=== PATIENT | male | born 1950 | race Caucasian/White ===

== ENCOUNTER 2020-02-24 16:20 | Emergency (ER) | payer MEDICARE, SELFPAY ==
[2020-02-24] VITALS (24 sets, daily range): BP systolic 187–231; BP diastolic 79–203; PULSE 56–77; RESP 13–21; TEMP 37.3; O2SAT 95–99
--- NOTE | ~2020-02-24 | CT_ITS ---
EXAMINATION: CTA BRAIN/CAROTID DATE: 02/24/2020 17:42 INDICATION: Stroke with dizziness, blurry vision and slurred speech. Headache. TECHNIQUE: Computed tomographic angiography (CTA) of the head and neck was performed with 100 mL Omni paque-350 intravenous contrast. Multiplanar reconstructions and maximum intensity projection 3D-recon structions of the carotid arteries and of the intracranial arteries were created by the technologist on a separate workstation. Precontrast CT of the head was also obtained. Automated exposure control and iterative reconstruction technique were employed.The dose-length product was 1779.77 mGy-cm. COMPARISON: Head CT dated 12/28/2014 FINDINGS: Carotid arteries: The bilateral internal carotid arteries are tortuous. There is 0% stenosis of the left carotid bulb r elative to normal distal artery lumen diameter (NASCET criteria). No definitive stenosis of the left carotid bulb relative to normal distal artery lumen diameter however assessment is significantly limi nicole by motion artifact at the level of the tortuosity. The left vertebral artery is dominant. The rig ht vertebral artery appears diminutive cephalad to the level of C6 and is unopacified more proximally suggesting proximal thrombosis with either distal reconstitution by collaterals or retrograde supply via the left vertebral artery. Cervical soft tissues and visualized superior mediastinum are unremar kable. Visualized upper lungs are clear. Moderate cervical spondylosis. Median sternotomy wires and s urgical clips along the left internal mamillary artery suggesting prior coronary artery bypass grafti ng. Head: No acute intracranial hemorrhage, acute infarction or abnormal extra axial fluid collection. Ventricl es are normal and symmetric. No mass/mass effect. Changes of bilateral intraocular lens replacement. The orbits, paranasal sinuses and mastoid air cells are normal. No abnormally enhancing lesions ident ified. Intracranial arteries There is stenosis of the intracranial right vertebral artery is subjectively >70% but the vessel is t oo small for quantitative assessment. There is no hemodynamically significant stenosis in the dominan t left vertebral, basilar and internal carotid arteries. There are no aneurysms identified. Both A1 and P1 segments are patent. Cerebral arterial arborization appears symmetric. IMPRESSION: 1. 0% stenosis of the left carotid bulb relative to normal distal artery lumen diameter (NASCET crite tyron). 2. No definitive stenosis of the left carotid bulb relative to normal distal artery lumen diameter ho wever assessment is limited by motion artifact at the level the tortuous proximal left internal carot id artery. 3. 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 4. No acute intracranial process. Reviewed, dictated and finalized at location A. IMPRESSION: 1. 0% stenosis of the left carotid bulb relative to normal distal artery lumen diameter (NASCET criteria). 2. No definitive stenosis of the left carotid bulb relative to normal distal ar melly lumen diameter however assessment is limited by motion artifact at the lev el the tortuous proximal left internal carotid artery. 3. 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 4. No acute intracranial process.
--- NOTE | ~2020-02-24 | XR_ITS ---
EXAMINATION: XR chest 1V portable DATE: 02/24/2020 17:33 INDICATION: Stroke. Dizziness, blurry vision and slurred speech. TECHNIQUE: frontal view of the chest was obtained. COMPARISON: Chest radiograph dated 06/10/2014 FINDINGS: Unchanged linear discoid atelectasis/scarring in the left mid and lower lung zones. No new airspace o pacities, pulmonary edema, pleural effusion or pneumothorax. Cardiomegaly. Median sternotomy wires an d mediastinal surgical clips are seen, likely from prior coronary artery bypass grafting. IMPRESSION: 1. Unchanged chronic linear discoid atelectasis/scarring in the left mid and lower lung zones. No acu te cardiopulmonary disease. 2. Cardiomegaly. Reviewed, dictated and finalized at location A. IMPRESSION: 1. Unchanged chronic linear discoid atelectasis/scarring in the left mid and lo wer lung zones. No acute cardiopulmonary disease. 2. Cardiomegaly.
--- NOTE | 2020-02-24 16:26 | ECG_ITS ---
Measurements Intervals [place] Rate: 77 P: [place]: 0 QRS: -48 QRSD: 96 T: 72 QT: 381 QTc: 432 Interpretive Statements ATRIAL FIBRILLATION VENTRICULAR PREMATURE COMPLEX LOW QRS VOLTAGE IN PRECORDIAL LEADS VOLTAGE CRITERIA FOR LVH BORDERLINE R WAVE PROGRESSION, ANTERIOR LEADS CONSIDER INFERIOR INFARCT, AGE INDETERMINATE BORDERLINE ST-T WAVE ABNORMALITY- HIGH LATERAL LEADS BASELINE ARTIFACT- I, II, III, AVR ABNORMAL ECG Electronically Signed On 02-25-2020 7:18:07 CDT by Damian Moore D.O.
[2020-02-24 16:54] LABS: Basophils Absolute Auto 0.1 K/mm3 (0.0-0.1); Basophils Percent Auto 0.8 % (0.2-1.2); Eosinophils Absolute Auto 0.3 K/mm3 (0-0.3); Eosinophils Percent Auto 4.4 % (0-4.4); Immature Granulocyte Absolute 0.02 K/mm3 (0.00-0.031); Immature Granulocyte Percent A 0.3 % (0-0.5); Lymphocytes Absolute Auto 1.37 K/mm3 (0.9-3.2); Lymphocytes Percent Auto 19.4 % (18.3-44.2); Mean Corpuscular HGB Conc 32.6 g/dl (32-36); Mean Corpuscular Hemoglobin 29.6 pg (26-34); Mean Corpuscular Volume 90.7 fl (80-100); Mean Platelet Volume 10.2 fl (7.4-10.4); Monocytes Absolute Auto 0.5 K/mm3 (0.1-0.6); Monocytes Percent Auto 7.2 % (2.6-8.5); Neutrophils Absolute Auto 4.8 K/mm3 (1.3-6.7); Neutrophils Percent Auto 67.9 % (45.5-73.1); Platelet Count Result 194 k/mm3 (150-375); Red Blood Count 5.07 M/mm3 (4.6-6.20); Red Cell Distribution Width 14.3 % (11.5-14.5); White Blood Count 7.1 K/mm3 (4.5-10.0)
[2020-02-24 17:04] LABS: INR 2.9; Prothrombin Time 29.4 Seconds (11.1-14.7)
[2020-02-24 17:05] LABS: Blood Urea Nitrogen 19 mg/dL (9-20); Calcium 9.4 mg/dL (8.4-10.2); Carbon Dioxide 31 mmol/L (22-30); Chloride 106 mmol/L (98-107); Estimated CRCL calculation 82 ml/min; Estimated Glomerular Filt Rate > 60; Glucose 111 mg/dL (75-110); Partial Thromboplastin Time 59.8 SECONDS (22.3-36.8); Potassium 4.2 mmol/L (3.4-5.0); Sodium 141 mmol/L (137-145)
[2020-02-24 17:11] LABS: Glucose Point of Care 112 (65-105)
[2020-02-24 17:18] LABS: Troponin I 0.042 ng/mL (0.000-0.034)
--- NOTE | 2020-02-24 18:22 | ED.NEUROSD ---
HPI - Neuro Symptoms/Deficit General Chief Complaint: Neuro Symptoms/Deficit <SHIV Fermin Last Filed: 02/24/20 18:57> Stated Complaint: Think I was having a stroke earlier. <SHIV Fermin Last Filed: 02/24/20 18:57> Time Seen by Provider: 02/24/20 16:24 <SHIV Fermin Last Filed: 02/24/20 18:57> Source: patient, family and old records reviewed <SHIV Fermin Last Filed: 02/24/20 18:57> Mode of arrival: ambulatory <SHIV Fermin Last Filed: 02/24/20 18:57> Limitations: no limitations <SHIV Fermin Last Filed: 02/24/20 18:57> History of Present Illness HPI Narrative: Patient is a 70-year-old male who presents per private vehicle with family noting that around 3:00 today while working in the yard he began to have gradually worsening blurred vision coupled with confusion was unable to remember names and events that had occurred in the earlier day as well as names and people that he should historically remember patient notes that upon returning indoors his symptoms lasted for a small period and then on arrival to emergency department have resolved noting that he only has residual front headache patient with multiple comorbidities primarily cardiopulmonary in nature is currently on warfarin anticoagulation for prior NH and bypass grafting. Patient on arrival is in the room in no distress has not taken anything for his symptoms <SHIV Fermin Last Filed: 02/24/20 18:57> Related Data Home Medications: Home Medications Medication Instructions Recorded Confirmed aspirin 81 mg tablet,delayed 81 mg PO DAILY 08/22/19 12/03/19 release calcium polycarbophil 625 mg tablet 1,250 mg PO DAILY 08/22/19 12/03/19 warfarin 5 mg tablet 5 mg PO DAILY 08/22/19 12/03/19 albuterol sulfate 90 mcg/actuation 2 puff INHALATION Q4-6H PRN gm 08/27/19 12/03/19 aerosol inhaler <SHIV Fermin Last Filed: 02/24/20 18:57> Allergies/Adverse Reactions: Allergies Allergy/AdvReac Type Severity Reaction Status Date / Time adhesive tape Allergy Mild Rash Verified 02/24/20 16:45 guaifenesin Allergy Mild unknown Verified 02/24/20 16:45 phenylpropanolamine Allergy Mild unknown Verified 02/24/20 16:45 adhesive Allergy Unknown BLISTERS Verified 02/24/20 16:45 PHENYLEPHRINE HCL Allergy Mild Unknown Uncoded 02/24/20 16:45 PSEUDOEPHEDRINE TANNATE Allergy Mild Unknown Uncoded 02/24/20 16:45 <Tod Levine PA-C - Last Filed: 02/24/20 18:57> Review of Systems Review of Systems: All systems reviewed & are unremarkable except as noted in HPI and below <Tod Levine PA-C - Last Filed: 02/24/20 18:57> [facility] Past Medical History Medical History: Medical History Atherosclerotic heart disease of [place] coronary artery without angina pectoris COPD (chronic obstructive pulmonary disease) Essential (primary) hypertension Fatigue Hx of malignant neoplasm of colon Hyperglycemia Hyperlipidemia <Tod Levine PA-C - Last Filed: 02/24/20 18:57> Surgical History Surgical History: Surgical History History of colon surgery History of ventral hernia repair <Tod Levine PA-C - Last Filed: 02/24/20 18:57> Social History Social History: Social History Smoking packs per day: 1 Smoking cigarettes per day: 20.0 Years smoked: 60 Smoking pack-years: 60.00 Smoking status: Former smoker Tobacco type: cigarettes Second hand tobacco smoke exposure: No Smoking end date: 09/26/98 Alcohol intake: current Gender identity (if verbalized by the patient): Male <Tod Levine PA-C - Last Filed: 02/24/20 18:57> Exam Narrative: Exam Narrative: GENERAL: Well-appearing, morbidly obese, and in no acute distress. HEAD: Normoc
--- NOTE | 2020-02-24 19:43 | PC.NURSE ---
[facility] here to transport patient to [facility] ER.
== END 2020-02-24 20:05 | disposition short-term general hospital (02) ==
PROVIDERS: Emergency Medicine Emergency Medical Services; Emergency Provider Emergency Medicine; PCP Internal Medicine
DX: I63.9 Cerebral infarction, unspecified (principal); R79.89 Other specified abnormal findings of blood chemistry; I25.10 Atherosclerotic heart disease of native coronary artery without angina pectoris; J44.9 Chronic obstructive pulmonary disease, unspecified; I10 Essential (primary) hypertension; E78.5 Hyperlipidemia, unspecified; Z85.038 Personal history of other malignant neoplasm of large intestine; Z87.891 Personal history of nicotine dependence; I48.91 Unspecified atrial fibrillation; I49.3 Ventricular premature depolarization; R94.31 Abnormal electrocardiogram [ECG] [EKG]; Z79.82 Long term (current) use of aspirin; Z79.01 Long term (current) use of anticoagulants
CPT/HCPCS: 36415; 70496; 70498; 71045; 80048; 82948; 84484; 85025; 85610; 85730; 93005; 99285; Q9967

== ENCOUNTER 2022-08-20 19:35 | Emergency (ER) | payer MEDICARE, SELFPAY ==
[2022-08-20] VITALS (7 sets, daily range): BP systolic 112–157; BP diastolic 64–111; PULSE 60–68; RESP 14–20; TEMP 36.1; O2SAT 95–99
--- NOTE | ~2022-08-20 | XR_ITS ---
EXAMINATION: XR shoulder LT min 2V DATE: 08/20/2022 19:59 INDICATION: Left shoulder injury post fall TECHNIQUE: AP internally and externally rotated and transscapular Y views of the left shoulder were o btained. COMPARISON: None FINDINGS: Anterior dislocation of the left glenohumeral joint. No acute fractures identified. Abnormal cortical contour along the cephalad margin of the base of the acromion which appears to been present on chest radiograph dated 02/24/2020 which could be either degenerative or sequela of old trauma. Moderate acr omioclavicular osteoarthritis. Moderate-sized anterior subacromial spur. Soft tissues are unremarkabl e. Visualized portion of the lungs are clear. Median sternotomy wires and mediastinal surgical clips are seen, likely from prior coronary artery bypass grafting. IMPRESSION: Left glenohumeral anterior dislocation. Reviewed, dictated and finalized at location A. ET SORTER
--- NOTE | ~2022-08-20 | XR_ITS ---
EXAMINATION: XR shoulder LT 1V DATE: 08/20/2022 22:51 INDICATION: Postreduction of a left shoulder dislocation TECHNIQUE: AP view of the left shoulder were obtained. COMPARISON: None FINDINGS: Left shoulder now appears in normal alignment on the single provided frontal projection. No evident f racture. Moderate acromioclavicular and likely also moderate glenohumeral osteoarthritis. IMPRESSION: Successful reduction to normal alignment of the previously dislocated left glenohumeral joint. Reviewed, dictated and finalized at location A. NSIC SPECIALIST IMPRESSION: Successful reduction to normal alignment of the previously dislocated left perla ohumeral joint.
--- NOTE | ~2022-08-20 | XR_ITS ---
EXAMINATION: XR chest 1V DATE: 08/20/2022 21:29 INDICATION: Fall TECHNIQUE: frontal view of the chest was obtained. COMPARISON: Chest radiograph dated 02/24/2020 FINDINGS: Again seen is linear discoid atelectasis/scarring at the lateral left lower lung zone. Cardiomegaly w ith pulmonary vascular congestion and mild increased perihilar interstitial pattern consistent with m ild pulmonary edema. No pleural effusion or pneumothorax. Median sternotomy wires and mediastinal cecilio gical clips are seen, likely from prior coronary artery bypass grafting. Retained epicardial pacemake r leads projecting over the right heart border. IMPRESSION: 1. Cardiomegaly with pulmonary vascular congestion and subtle increased interstitial pattern in the b ilateral perihilar regions consistent with mild pulmonary edema. Reviewed, dictated and finalized at location A. CTIONS COUNSELOR IMPRESSION: 1. Cardiomegaly with pulmonary vascular congestion and subtle increased interst itial pattern in the bilateral perihilar regions consistent with mild pulmonary edema.
--- NOTE | ~2022-08-20 | XR_ITS ---
EXAMINATION: XR pelvis 1-2V DATE: 08/20/2022 21:28 INDICATION: Fall TECHNIQUE: An anteroposterior view of the pelvis was obtained on 3 radiographs. COMPARISON: None. FINDINGS: Evaluation mildly limited by patient body habitus. Alignment is normal. No evident fracture. Severe l ower lumbar spondylosis. Mild bilateral hip osteoarthritis. Multiple surgical clips projecting over t he lower abdomen. IMPRESSION: 1. No acute osseous abnormality. Sensitivity mildly decreased by body habitus. 2. Severe lower lumbar spondylosis and mild bilateral hip osteoarthritis. Reviewed, dictated and finalized at location A. RATURE PROFESSOR
--- NOTE | ~2022-08-20 | XR_ITS ---
EXAMINATION: XR shoulder LT 1V DATE: 08/20/2022 22:07 INDICATION: Postreduction left glenohumeral dislocation, first attempt TECHNIQUE: AP view of the left shoulder was obtained. COMPARISON: None FINDINGS: Persistent anterior dislocation of the humeral head with respect to the left glenoid. No fractures id entified. Moderate acromioclavicular osteoarthritis. IMPRESSION: Unchanged anterior left glenohumeral dislocation. Reviewed, dictated and finalized at location A. AND GAS EXPLORATION TECHNICIAN
--- NOTE | ~2022-08-20 | CT_ITS ---
EXAMINATION: CT brain wo con DATE: 08/20/2022 21:09 INDICATION: Fall with facial injury and facial pain TECHNIQUE: Computed tomography (CT) of the head was performed without intravenous contrast. Sagittal and coronal reconstructions were performed. The mA was adjusted according to patient size. Iterative reconstruction technique was employed. The dose-length product was 908.00 mGy-cm. COMPARISON: head CT dated 12/28/2014 and 02/24/2020 FINDINGS: No fracture. No acute intracranial hemorrhage, acute infarction or abnormal extra axial fluid collect ion. Symmetric prominence of the sulci and subarachnoid spaces overlying the convexities consistent w ith mild age-appropriate diffuse cerebral volume loss. Ventricles are normal and symmetric. No mass/ mass effect. Changes of bilateral intraocular lens replacement. Chronic tiny left mastoid effusion. M ild mucosal thickening the bilateral ethmoid sinuses. IMPRESSION: 1. Normal aging brain. No fracture or acute intracranial process. Reviewed, dictated and finalized at location A. TY LEAD
--- NOTE | ~2022-08-20 | CT_ITS ---
EXAMINATION: CT facial & cervical spine wo DATE: 08/20/2022 23:07 INDICATION: Fall. Head injury, facial injury TECHNIQUE: Computed tomography (CT) of the facial bones and maxillofacial region was performed withou t intravenous contrast. Automated exposure control and iterative reconstruction technique were employ ed. Exam dose: 550.08 mGy-cm total exam DLP. COMPARISON: None. FINDINGS: Persistent metopic suture, anatomic variant. The nasal bones, anterior maxillary spine, frontozygomatic sutures, orbital rims and acevedo, zygomatic arches and maxillary bones are intact, without evidence of fracture. Prominent osteoarthritic change at the right temporomandibular joint. No mandibular fracture or dislo cation. The patient is edentulous. IMPRESSION: No facial fracture Reviewed, dictated and finalized at Location A. Reviewed, dictated and finalized at location A. MAKER ELECTRONIC IMPRESSION: No facial fracture
--- NOTE | 2022-08-20 20:44 | ED.FALL ---
HPI - Fall General Chief Complaint: Fall <Bibiana Rodriguez PA-C - Last Filed: 08/21/22 00:49> Stated Complaint: left shoulder, fall, possible dislocation/fx <Bibiana Rodriguez PA-C - Last Filed: 08/21/22 00:49> Time Seen by Provider: 08/20/22 20:25 <Bibiana Rodriguez PA-C - Last Filed: 08/21/22 00:49> Source: patient <SHIV Shelley Last Filed: 08/21/22 00:49> Mode of arrival: ambulatory <Bibiana Rodriguez PA-C - Last Filed: 08/21/22 00:49> Limitations: no limitations <SHIV Shelley Last Filed: 08/21/22 00:49> History of Present Illness HPI Narrative: This is a 72 year old male that presents to the ER after a fall with left shoulder injury. Reports he tripped over a go cart. Reports he hit his head and landed on his left shoulder. Reports pain and decreased active ROM in the left shoulder. Reports he takes Warfarin daily. Denies vision changes, vomiting, numbness or weakness. <SHIV Shelley Last Filed: 08/21/22 00:49> Related Data Home Medications: Home Medications Medication Instructions Recorded Confirmed aspirin 81 mg tablet,delayed 81 mg PO DAILY 08/22/19 12/23/21 release (Adult Low Dose Aspirin) calcium polycarbophil 625 mg 1,250 mg PO DAILY 08/22/19 12/23/21 tablet (FiberCon) warfarin 5 mg tablet 5 mg PO DAILY 08/22/19 12/23/21 loratadine 10 mg tablet (Claritin) 10 mg PO DAILY 05/30/20 12/23/21 ascorbate calcium (vitamin C) 500 500 mg PO DAILY 09/09/21 12/23/21 mg tablet atorvastatin 40 mg tablet 80 mg PO DAILY 09/09/21 12/23/21 cholecalciferol (vitamin D3) 25 25 mcg PO DAILY 12/23/21 12/23/21 mcg (1,000 unit) capsule <SHIV Shelley Last Filed: 08/21/22 00:49> Allergies/Adverse Reactions: Allergies Allergy/AdvReac Type Severity Reaction Status Date / Time adhesive tape Allergy Mild Rash Verified 08/20/22 19:37 guaifenesin Allergy Mild unknown Verified 08/20/22 19:37 phenylpropanolamine Allergy Mild unknown Verified 08/20/22 19:37 adhesive Allergy Unknown BLISTERS Verified 08/20/22 19:37 PHENYLEPHRINE HCL Allergy Mild Unknown Uncoded 12/23/21 10:31 PSEUDOEPHEDRINE TANNATE Allergy Mild Unknown Uncoded 12/23/21 10:31 <Bibiana Rodriguez PA-C - Last Filed: 08/21/22 00:49> Review of Systems Review of Systems: CONSTITUTIONAL: Denies fever EYES: Denies visual changes CARDIOVASCULAR: Reports chest pain RESPIRATORY: Denies dyspnea. GASTROINTESTINAL: Denies vomiting MUSCULOSKELETAL: Reports joint pain, and myalgia. NEUROLOGIC: Denies numbness, or weakness. <Bibiana Rodriguez PA-C - Last Filed: 08/21/22 00:49> All systems reviewed & are unremarkable except as noted in HPI and below <Bibiana Rodriguez PA-C - Last Filed: 08/21/22 00:49> [facility] Past Medical History Medical History: Medical History (Updated 08/22/22 @ 00:00 by Background Daemon) Atherosclerotic heart disease of [place] coronary artery without angina pectoris COPD (chronic obstructive pulmonary disease) Essential (primary) hypertension Fatigue Hx of malignant neoplasm of colon Hyperglycemia Hyperlipidemia <Bibiana Rodriguez PA-C - Last Filed: 08/21/22 00:49> Surgical History Surgical History: Surgical History History of colon surgery History of ventral hernia repair <Bibiana Rodriguez PA-C - Last Filed: 08/21/22 00:49> Family History Family History: Family History Mother Cerebrovascular accident, Onset Age: 78 Patient's mother is Father Patient's father is Family history of lung cancer Sibling Patient's sister is Diabetes mellitus Hypertension <Bibiana Rodriguez PA-C - Last Filed: 08/21/22 00:49> Social History Social History: Social History Smoking packs per day: 1 Smoking cigarettes per day: 2
[2022-08-20] MEDS: MORPHINE SULFATE (*CRX) 4 MG/ML INJ IV PUSH (21:16)
[2022-08-20] MEDS: ONDANSETRON INJ 4 MG/2 ML VIAL IV PUSH (21:28)
[2022-08-20] MEDS: MIDAZOLAM HCL (*CRX) 2 MG/2 ML VIAL IV PUSH (21:39)
[2022-08-20] MEDS: MORPHINE SULFATE (*CRX) 2 MG/ML INJ IV PUSH (21:46)
[2022-08-20] MEDS: PROPOFOL IV EMULSION 200 MG/20 ML VIAL 125 MG IV PUSH (22:34)
--- NOTE | 2022-08-20 22:50 | PC.NURSE ---
2230- Timeout preformed, Dr. Briscoe and WENDY Mccarty at bedside. Crash cart at bedside. 2233- 100 mg Prop[address] given by Dr. Briscoe 2235- Left shoulder reduced by Dr. Briscoe and Bibiana, pt O2 dropping slightly, placed on 2 L of O2 and aroused 2236- Xray ordered to confirm 2239- Pt drowsy but answering questions appropriately, O2 saturation WNL at this time w/o additional oxygen
--- NOTE | 2022-08-21 00:21 | ECG_ITS ---
Measurements Intervals [place] Rate: 66 P: [place]: 0 QRS: -44 QRSD: 112 T: 59 QT: 438 QTc: 462 Interpretive Statements ATRIAL FIBRILLATION INCOMPLETE RIGHT BUNDLE BRANCH BLOCK LOW QRS VOLTAGE IN PRECORDIAL LEADS POOR R WAVE PROGRESSION, CONSIDER ANTERIOR INFARCT INFERIOR INFARCT, AGE INDETERMINATE ST-T WAVE ABNORMALITY IN HIGH LATERAL LEADS- CONSIDER ISCHEMIA BASELINE ARTIFACT- II, III ABNORMAL ECG COMPARED TO ECG 02/24/2020 16:28:48 NO SIGNIFICANT CHANGES Electronically Signed On 08-21-2022 9:44:03 ACETYLENE OPERATOR by Damian Moore D.O.
== END 2022-08-21 01:06 | disposition home or self-care (01) ==
PROVIDERS: Emergency Provider Emergency Medicine; PCP Internal Medicine
DX: S43.015A Anterior dislocation of left humerus, initial encounter (principal); S09.90XA Unspecified injury of head, initial encounter; I25.10 Atherosclerotic heart disease of native coronary artery without angina pectoris; J44.9 Chronic obstructive pulmonary disease, unspecified; I10 Essential (primary) hypertension; E78.5 Hyperlipidemia, unspecified; Z85.038 Personal history of other malignant neoplasm of large intestine; Z79.82 Long term (current) use of aspirin; Z79.01 Long term (current) use of anticoagulants; Z87.891 Personal history of nicotine dependence; I48.91 Unspecified atrial fibrillation; I45.10 Unspecified right bundle-branch block; R94.31 Abnormal electrocardiogram [ECG] [EKG]; M47.816 Spondylosis without myelopathy or radiculopathy, lumbar region; M16.0 Bilateral primary osteoarthritis of hip; I51.7 Cardiomegaly; R09.89 Other specified symptoms and signs involving the circulatory and respiratory systems; W18.09XA Striking against other object with subsequent fall, initial encounter
CPT/HCPCS: 23650; 70450; 70486; 71045; 72125; 72170; 73020; 73030; 93005; 96365; 96375; 99285; A4565; J0131; J2250; J2270; J2405; J2704